=== PATIENT | male | born 1955 | race Caucasian/White ===

== ENCOUNTER → 2016-08-24 | Outpatient (CLI) | payer OTHER ==
[~2016-08-24] MED LIST: ALEVE 220MG220 MG PO; BENICAR HCT 12.1 TA1 PO; BENICAR PO; CYMBALTA 60MG60 MG PO; DIOVAN; FISH OIL1 IU PO; FLEXERIL PO; FLEXERIL10 MG PO; HCTZ; IBUPROFEN800 MG PO; MICRO-K8 MEQ PO; MILK THISTLE PO; MS CONTIN 330 MG/TAB PO; MVI PO; NICOTINE; NORCO 325 MG-101 TAB PO; OXYCODONE PO; PERCOCET 325 MG1 TA2 PO; PERCOCET 325 MG1 TAB PO; TRAMADOL50 MG PO; VICODIN PO
== END ==
LOC: COL.RAD 09:45
DX: K74.69 Other cirrhosis of liver (principal)

== ENCOUNTER 2016-08-31 07:23 | Day surgery (SDC) | payer OTHER ==
[~2016-08-31] VITALS: Ht 177.8 cm; Wt 73.0 kg
[~2016-08-31 07:23] MED LIST changes: -ALEVE 220MG220 MG PO
[2016-08-31 07:55] VITALS: BP 136/86; PULSE 64; TEMP 98.2
[2016-08-31] MEDS ORDERED: ALEVE 220MG220 MG PO (08:06)
[2016-08-31 09:02] VITALS: BP 130/86; PULSE 57; TEMP 98.2
[2016-08-31 09:17] VITALS: BP 135/89; PULSE 63
[2016-08-31 09:32] VITALS: BP 139/91; PULSE 60
== END 2016-08-31 09:50 | disposition home or self-care (01) ==
LOC: SDCO 07:23
DX: K21.0 Gastro-esophageal reflux disease with esophagitis (principal); I85.00 Esophageal varices without bleeding; K74.60 Unspecified cirrhosis of liver; I10 Essential (primary) hypertension; Z86.010 Personal history of colon polyps; Z79.899 Other long term (current) drug therapy
CPT/HCPCS: OP; J2704; J7120

== ENCOUNTER 2017-11-25 13:17 | Day surgery (SDC) | payer OTHER ==
[~2017-11-25] VITALS: Ht 177.8 cm; Wt 69.9 kg
[~2017-11-25 13:17] MED LIST changes: +ALEVE 220MG220 MG PO
[2017-11-25] MEDS ORDERED: DIOVAN HCT 25 M1 TAB PO (13:31)
[2017-11-25] MEDS ORDERED: PRILOTC PO (13:32)
[2017-11-25] MEDS ORDERED: TYLENOL 500MG500 MG PO (13:32)
[2017-11-25 13:51] VITALS: BP 124/70; PULSE 75; TEMP 98.2
[2017-11-25 15:40] VITALS: BP 117/74; PULSE 72; TEMP 97.8
[2017-11-25] MEDS ORDERED: PROTONIX 40MG T40 MG (15:40)
[2017-11-25 16:00] VITALS: BP 123/78; PULSE 60
== END 2017-11-25 16:15 | disposition home or self-care (01) ==
LOC: SDCO 13:17
DX: K26.3 Acute duodenal ulcer without hemorrhage or perforation (principal); Z86.010 Personal history of colon polyps; K29.30 Chronic superficial gastritis without bleeding; D50.0 Iron deficiency anemia secondary to blood loss (chronic); I10 Essential (primary) hypertension; K74.60 Unspecified cirrhosis of liver
CPT/HCPCS: J2250; J2704; J3010; J7030

== ENCOUNTER → 2017-11-26 | Outpatient (CLI) | payer OTHER ==
[~2017-11-26] MED LIST changes: +DIOVAN HCT 25 M1 TAB PO; +PRILOTC PO; +PROTONIX 40MG T40 MG; +TYLENOL 500MG500 MG PO
== END ==
LOC: COL.RAD 16:27
DX: M48.07 Spinal stenosis, lumbosacral region (principal); M43.16 Spondylolisthesis, lumbar region; M41.86 Other forms of scoliosis, lumbar region; M54.6 Pain in thoracic spine; Z96.9 Presence of functional implant, unspecified

== ENCOUNTER → 2017-11-26 | Outpatient (CLI) | payer OTHER | LOC: MHCPAIN 14:59 | DX: G89.29 Other chronic pain (principal); M47.27 Other spondylosis with radiculopathy, lumbosacral region; M53.3 Sacrococcygeal disorders, not elsewhere classified; M96.1 Postlaminectomy syndrome, not elsewhere classified; F17.200 Nicotine dependence, unspecified, uncomplicated | CPT/HCPCS: G0463 ==

== ENCOUNTER → 2018-01-17 | Outpatient (CLI) | payer OTHER | LOC: MHCPAIN 08:00 | DX: G89.29 Other chronic pain (principal); M47.817 Spondylosis without myelopathy or radiculopathy, lumbosacral region; M54.16 Radiculopathy, lumbar region; M53.3 Sacrococcygeal disorders, not elsewhere classified; M96.1 Postlaminectomy syndrome, not elsewhere classified; M48.061 Spinal stenosis, lumbar region without neurogenic claudication | CPT/HCPCS: G0463 ==

== ENCOUNTER → 2018-02-14 | Outpatient (CLI) | payer OTHER | LOC: MHCPAIN 08:09 | DX: G89.29 Other chronic pain (principal); M47.817 Spondylosis without myelopathy or radiculopathy, lumbosacral region; M53.3 Sacrococcygeal disorders, not elsewhere classified; M96.1 Postlaminectomy syndrome, not elsewhere classified; M48.061 Spinal stenosis, lumbar region without neurogenic claudication | CPT/HCPCS: G0463 ==

== ENCOUNTER → 2018-02-21 | Outpatient (CLI) | payer OTHER | LOC: COL.RAD 07:47 | DX: M43.8X6 Other specified deforming dorsopathies, lumbar region (principal); M51.36 Other intervertebral disc degeneration, lumbar region; M40.46 Postural lordosis, lumbar region; M48.061 Spinal stenosis, lumbar region without neurogenic claudication; Z98.1 Arthrodesis status | CPT/HCPCS: A9585 ==

== ENCOUNTER → 2018-04-16 | Outpatient (CLI) | payer OTHER | LOC: MHCPAIN 15:00 | DX: G89.29 Other chronic pain (principal); M47.817 Spondylosis without myelopathy or radiculopathy, lumbosacral region; M54.16 Radiculopathy, lumbar region; M53.3 Sacrococcygeal disorders, not elsewhere classified; M96.1 Postlaminectomy syndrome, not elsewhere classified | CPT/HCPCS: G0463 ==

== ENCOUNTER → 2018-08-13 | Outpatient (CLI) | payer OTHER | LOC: MHCPAIN 13:24 | DX: G89.29 Other chronic pain (principal); M47.817 Spondylosis without myelopathy or radiculopathy, lumbosacral region; M54.16 Radiculopathy, lumbar region; M53.3 Sacrococcygeal disorders, not elsewhere classified; M96.1 Postlaminectomy syndrome, not elsewhere classified | CPT/HCPCS: G0463 ==

== ENCOUNTER → 2018-11-12 | Outpatient (CLI) | payer OTHER | LOC: MHCPAIN 13:16 | DX: G89.29 Other chronic pain (principal); M47.817 Spondylosis without myelopathy or radiculopathy, lumbosacral region; M54.16 Radiculopathy, lumbar region; M53.3 Sacrococcygeal disorders, not elsewhere classified; M96.1 Postlaminectomy syndrome, not elsewhere classified | CPT/HCPCS: G0463 ==

== ENCOUNTER → 2019-02-10 | Outpatient (CLI) | payer OTHER | LOC: MHCPAIN 13:10 | DX: G89.29 Other chronic pain (principal); M47.817 Spondylosis without myelopathy or radiculopathy, lumbosacral region; M54.16 Radiculopathy, lumbar region | CPT/HCPCS: G0463 ==

== ENCOUNTER → 2019-05-06 | Outpatient (CLI) | payer OTHER | LOC: MHCPAIN 07:54 | DX: G89.29 Other chronic pain (principal); M47.817 Spondylosis without myelopathy or radiculopathy, lumbosacral region; M54.16 Radiculopathy, lumbar region; M53.3 Sacrococcygeal disorders, not elsewhere classified | CPT/HCPCS: G0463 ==

== ENCOUNTER → 2019-08-04 | Outpatient (CLI) | payer OTHER | LOC: MHCPAIN 08:11 | DX: M47.817 Spondylosis without myelopathy or radiculopathy, lumbosacral region (principal); M54.16 Radiculopathy, lumbar region | CPT/HCPCS: G0463 ==

== ENCOUNTER → 2019-09-01 | Outpatient (CLI) | payer OTHER | LOC: MHCPAIN 09:07 | DX: M53.3 Sacrococcygeal disorders, not elsewhere classified (principal); M54.16 Radiculopathy, lumbar region; M96.1 Postlaminectomy syndrome, not elsewhere classified | CPT/HCPCS: G0463 ==

== ENCOUNTER → 2019-12-30 | Outpatient (CLI) | payer OTHER | LOC: MHCPAIN 08:57 | DX: M47.817 Spondylosis without myelopathy or radiculopathy, lumbosacral region (principal); M53.3 Sacrococcygeal disorders, not elsewhere classified; M54.5 Low back pain | CPT/HCPCS: G0463 ==

== ENCOUNTER → 2020-03-22 | Outpatient (CLI) | payer OTHER | LOC: MHCPAIN 09:42 | DX: M47.817 Spondylosis without myelopathy or radiculopathy, lumbosacral region (principal); M54.5 Low back pain; M53.3 Sacrococcygeal disorders, not elsewhere classified; M96.1 Postlaminectomy syndrome, not elsewhere classified; G89.29 Other chronic pain | CPT/HCPCS: G0463 ==

== ENCOUNTER → 2020-06-21 | Outpatient (CLI) | payer MEDICARE | LOC: MHCPAIN 09:46 | DX: M54.5 Low back pain (principal); M96.1 Postlaminectomy syndrome, not elsewhere classified; M53.3 Sacrococcygeal disorders, not elsewhere classified | CPT/HCPCS: G0463 ==

== ENCOUNTER → 2020-08-11 | Outpatient (CLI) | payer MEDICARE ==
[2020-08-11] VITALS (17 sets, daily range): BP systolic 130–159; BP diastolic 87–98; PULSE 61–83
[~2020-08-11] VITALS: Ht 177.8 cm; Wt 66.0 kg
[~2020-08-11] MED LIST changes: +PRILOSEC 20MG20 MG PO
[2020-08-11 08:44] LABS: INR 1.1 (0.8-3.0); PROTHROMBIN TIME 12.2 SECONDS (9.7-12.8)
== END ==
LOC: COL.RAD 08:04
PROVIDERS: Internal Medicine
DX: K76.9 Liver disease, unspecified (principal); R59.0 Localized enlarged lymph nodes

== ENCOUNTER → 2020-08-23 | Outpatient (CLI) | payer MEDICARE, OTHER | LOC: MHCPAIN 10:51 | DX: M47.816 Spondylosis without myelopathy or radiculopathy, lumbar region (principal); M54.5 Low back pain; M96.1 Postlaminectomy syndrome, not elsewhere classified; M41.86 Other forms of scoliosis, lumbar region | CPT/HCPCS: G0463 ==

== ENCOUNTER → 2020-09-13 | Outpatient (CLI) | payer MEDICARE, OTHER ==
[~2020-09-13] MED LIST changes: +AMBIEN 10MG10 MG PO; +COMPAZINE 110 MG/TAB PO; +DULCOLAX STOOL100 MG PO; +FENTANYL 25 MCG TD; +FENTANYL 50MCG TD; +MIRTAZAPINE7.5 MG PO; +SENNA-LAX8.6 MG PO
== END ==
LOC: MHCPAIN 07:52
DX: M54.5 Low back pain (principal); M53.3 Sacrococcygeal disorders, not elsewhere classified; M96.1 Postlaminectomy syndrome, not elsewhere classified; C78.7 Secondary malignant neoplasm of liver and intrahepatic bile duct; G89.29 Other chronic pain
CPT/HCPCS: G0463

== ENCOUNTER → 2020-10-03 | Outpatient (CLI) | payer MEDICARE | LOC: MHCPAIN 09:18 | DX: M41.86 Other forms of scoliosis, lumbar region (principal); M96.1 Postlaminectomy syndrome, not elsewhere classified; M54.5 Low back pain; G89.29 Other chronic pain | CPT/HCPCS: G0463 ==

== ENCOUNTER → 2020-10-31 | Outpatient (CLI) | payer MEDICARE | LOC: MHCPAIN 09:19 | DX: M47.816 Spondylosis without myelopathy or radiculopathy, lumbar region (principal); M54.5 Low back pain; M96.1 Postlaminectomy syndrome, not elsewhere classified; G89.29 Other chronic pain; M53.3 Sacrococcygeal disorders, not elsewhere classified | CPT/HCPCS: G0463 ==

== ENCOUNTER 2020-11-22 12:53 | Outpatient (RCR) | payer MEDICARE ==
[2020-11-22] VITALS (9 sets, daily range): BP systolic 124–143; BP diastolic 57–86; PULSE 62–83; TEMP 98–98.6
[~2020-11-22] VITALS: Ht 177.8 cm; Wt 64.5 kg
[~2020-11-22 12:53] MED LIST changes: -AMBIEN 10MG10 MG PO; -COMPAZINE 110 MG/TAB PO; -DULCOLAX STOOL100 MG PO; -FENTANYL 25 MCG TD; -FENTANYL 50MCG TD; -MIRTAZAPINE7.5 MG PO; -SENNA-LAX8.6 MG PO
[2020-11-22] MEDS ORDERED: FENTANYL 25 MCG TD (16:12)
[2021-02-20] MEDS ORDERED: PERCOCET 325 MG1 TAB PO (12:00)
[2021-02-20] MEDS ORDERED: FENTANYL 50MCG TD (12:01)
[2021-02-20] MEDS ORDERED: SENNA-LAX8.6 MG PO (12:05)
[2021-02-20] MEDS ORDERED: AMBIEN 10MG10 MG PO (12:06)
[2021-02-20] MEDS ORDERED: DULCOLAX STOOL100 MG PO (12:07)
[2021-02-20] MEDS ORDERED: MIRTAZAPINE7.5 MG PO (12:07)
[2021-02-20] MEDS ORDERED: COMPAZINE 110 MG/TAB PO (12:08)
== END 2020-11-22 19:40 | disposition home or self-care (01) ==
LOC: EUO 12:53
DX: C77.2 Secondary and unspecified malignant neoplasm of intra-abdominal lymph nodes (principal); C80.1 Malignant (primary) neoplasm, unspecified; D64.81 Anemia due to antineoplastic chemotherapy
CPT/HCPCS: J1644; J7050; P9016

== ENCOUNTER 2020-11-28 13:35 | Emergency (ER) | payer MEDICARE ==
[~2020-11-28] VITALS: Ht 177.8 cm; Wt 61.4 kg
[~2020-11-28 13:35] MED LIST changes: +FENTANYL 25 MCG TD
[2020-11-28 13:56] VITALS: TEMP 97.9
[2020-11-28 14:41] LABS: BASO % 0.3 % (0.0-2.0); GRAN # 2.4 (1.4-6.5); GRAN % 75.2 % (42.2-75.2); HEMOGLOBIN 10.2 g/dl (13.5-18.0); LYMPH # 0.4 (1.2-3.4); MEAN CELL VOLUME 102 fl (80.0-100.0); MEAN CORPUSCULAR HEMOGLOBIN 34 pg (27.0-31.0); MEAN CORPUSCULAR HGB CONC 33 g/dl (33.0-37.0); MEAN PLATELET VOLUME 13.4 fl (7.4-10.4); MONO # 0.3 (0.1-0.6); MONO % 9.2 % (1.7-9.3); RED BLOOD COUNT 2.99 M/mm3 (4.20-5.60); REDCELL DISTRIBUTION WIDTH-CV 16.7 % (11.5-14.5)
[2020-11-28 14:52] LABS: HEMATOCRIT 30.5 % (42.0-52.0)
[2020-11-28 14:53] LABS: ALBUMIN 4.1 gm/dL (3.5-5.0); BILIRUBIN,TOTAL 0.3 mg/dL (0.0-1.0); C-REACTIVE PROTEIN 2.7 mg/dL (0.0-0.9); CREATININE, serum 0.89 (0.66-1.25); POTASSIUM 3.5 mmol/L (3.4-5.0); TOTAL PROTEIN 7.8 gm/dL (6.4-8.2)
[2020-11-28 14:54] LABS: PLATELET COUNT 31 K/mm3 (130-400)
[2020-11-28 15:33] LABS: COLLECTION METHOD CLEAN CATCH
[2020-11-28 15:39] LABS: MUCOUS Present /lpf; PH 7 (5-8); SQUAMOUS EPITHELIAL None Seen /hpf; URINE APPEARANCE Clear; URINE BACTERIA None Seen /hpf; URINE BILIRUBIN Negative (NEGATIVE); URINE BLOOD Negative (NEGATIVE); URINE COLOR Yellow; URINE GLUCOSE Negative (NEGATIVE); URINE KETONE Negative (NEGATIVE); URINE LEUKOCYTE ESTERASE Negative (NEGATIVE); URINE NITRATE Negative (NEGATIVE); URINE PROTEIN(semi-quant) Negative (NEGATIVE); URINE UROBILINOGEN Negative (NEGATIVE)
[2020-11-28 17:10] VITALS: BP 176/103; PULSE 78
[2021-02-20] MEDS ORDERED: PERCOCET 325 MG1 TAB PO (12:00)
[2021-02-20] MEDS ORDERED: FENTANYL 50MCG TD (12:01)
[2021-02-20] MEDS ORDERED: SENNA-LAX8.6 MG PO (12:05)
[2021-02-20] MEDS ORDERED: AMBIEN 10MG10 MG PO (12:06)
[2021-02-20] MEDS ORDERED: MIRTAZAPINE7.5 MG PO (12:07)
[2021-02-20] MEDS ORDERED: DULCOLAX STOOL100 MG PO (12:07)
[2021-02-20] MEDS ORDERED: COMPAZINE 110 MG/TAB PO (12:08)
== END 2020-11-28 17:17 | disposition home or self-care (01) ==
LOC: COL.ER 13:35
PROVIDERS: Nurse Practitioner
DX: R10.11 Right upper quadrant pain (principal); C22.9 Malignant neoplasm of liver, not specified as primary or secondary; F17.210 Nicotine dependence, cigarettes, uncomplicated
CPT/HCPCS: J2405; J3010; J7030; Q9967

== ENCOUNTER → 2020-11-29 | Outpatient (CLI) | payer MEDICARE ==
[~2020-11-29] MED LIST changes: +AMBIEN 10MG10 MG PO; +COMPAZINE 110 MG/TAB PO; +DULCOLAX STOOL100 MG PO; +FENTANYL 50MCG TD; +MIRTAZAPINE7.5 MG PO; +SENNA-LAX8.6 MG PO
== END ==
LOC: MHCPAIN 07:58
DX: M47.816 Spondylosis without myelopathy or radiculopathy, lumbar region (principal); M96.1 Postlaminectomy syndrome, not elsewhere classified; M54.5 Low back pain; G89.29 Other chronic pain
CPT/HCPCS: G0463

== ENCOUNTER → 2020-12-06 | Outpatient (CLI) | payer MEDICARE | LOC: MHCPAIN 08:58 | DX: M47.816 Spondylosis without myelopathy or radiculopathy, lumbar region (principal); C80.1 Malignant (primary) neoplasm, unspecified; M96.1 Postlaminectomy syndrome, not elsewhere classified; G89.29 Other chronic pain | CPT/HCPCS: G0463 ==

== ENCOUNTER → 2021-01-17 | Outpatient (CLI) | payer MEDICARE | LOC: MHCPAIN 09:11 | DX: M47.816 Spondylosis without myelopathy or radiculopathy, lumbar region (principal); M96.1 Postlaminectomy syndrome, not elsewhere classified; C80.1 Malignant (primary) neoplasm, unspecified; G89.3 Neoplasm related pain (acute) (chronic) | CPT/HCPCS: G0463 ==

== ENCOUNTER → 2021-02-14 | Outpatient (CLI) | payer MEDICARE | LOC: MHCPAIN 09:28 | DX: M54.5 Low back pain (principal); M47.816 Spondylosis without myelopathy or radiculopathy, lumbar region; M96.1 Postlaminectomy syndrome, not elsewhere classified; G89.29 Other chronic pain | CPT/HCPCS: G0463 ==

== ENCOUNTER → 2021-02-20 | Outpatient (CLI) | payer MEDICARE ==
[~2021-02-20] VITALS: Ht 177.8 cm; Wt 52.3 kg
[2021-02-20 12:08] VITALS: BP 139/93; PULSE 109; TEMP 98.1
[2021-02-20 13:10] VITALS: BP 160/99; PULSE 95
== END ==
LOC: COL.RAD 11:41
DX: C80.1 Malignant (primary) neoplasm, unspecified (principal)
CPT/HCPCS: 32140

== ENCOUNTER → 2021-03-07 | Outpatient (CLI) | payer MEDICARE | LOC: MHCPAIN 07:53 | DX: M47.816 Spondylosis without myelopathy or radiculopathy, lumbar region (principal); M96.1 Postlaminectomy syndrome, not elsewhere classified; M54.5 Low back pain; C80.1 Malignant (primary) neoplasm, unspecified; M53.3 Sacrococcygeal disorders, not elsewhere classified | CPT/HCPCS: G0463 ==

== ENCOUNTER → 2021-03-21 | Outpatient (CLI) | payer MEDICARE | LOC: MHCPAIN 13:16 | DX: M54.16 Radiculopathy, lumbar region (principal); M96.1 Postlaminectomy syndrome, not elsewhere classified; G89.3 Neoplasm related pain (acute) (chronic) | CPT/HCPCS: G0463 ==

== ENCOUNTER → 2021-04-18 | Outpatient (CLI) | payer MEDICARE | LOC: MHCPAIN 10:42 | DX: M54.5 Low back pain (principal); C80.1 Malignant (primary) neoplasm, unspecified; R10.84 Generalized abdominal pain; M47.816 Spondylosis without myelopathy or radiculopathy, lumbar region; M96.1 Postlaminectomy syndrome, not elsewhere classified | CPT/HCPCS: G0463 ==

== ENCOUNTER 2021-04-22 23:47 | Emergency (ER) | payer MEDICARE ==
[~2021-04-22] VITALS: Ht 177.8 cm; Wt 47.7 kg
[2021-04-22 23:57] VITALS: TEMP 98.5
[2021-04-23 00:19] LABS: BASO % 0.5 % (0.0-2.0); EOS % 0.2 % (0-4.0); GRAN # 4.3 (1.4-6.5); GRAN % 72.4 % (42.2-75.2); LYMPH % 17.4 % (20.0-51.0); MEAN CELL VOLUME 107 fl (80.0-100.0); MEAN CORPUSCULAR HGB CONC 32 g/dl (33.0-37.0); MEAN PLATELET VOLUME 10.6 fl (7.4-10.4); MONO # 0.5 (0.1-0.6); MONO % 8.7 % (1.7-9.3); PLATELET COUNT 136 K/mm3 (130-400); REDCELL DISTRIBUTION WIDTH-CV 13.2 % (11.5-14.5)
[2021-04-23 00:20] LABS: HEMATOCRIT 29.9 % (42.0-52.0); HEMOGLOBIN 9.7 g/dl (13.5-18.0); MEAN CORPUSCULAR HEMOGLOBIN 35 pg (27.0-31.0)
[2021-04-23 00:21] LABS: INR 1.2 (0.8-3.0); PROTHROMBIN TIME 13.1 SECONDS (9.7-12.8)
[2021-04-23 00:26] LABS: ALBUMIN 2.6 gm/dL (3.4-4.8); ALKALINE PHOSPHATASE 177 U/L (0-750); ANION GAP 14 mmol/L (7-16); AST,SGOT 10 U/L (5-34); BILIRUBIN,TOTAL 0.3 mg/dL (0.2-1.2); BLOOD UREA NITROGEN 26 mg/dL (8-26); CALCIUM 7.7 mg/dL (8.4-10.2); CARBON DIOXIDE 20 mmol/L (23-31); CHLORIDE 105 mmol/L (98-107); CREATININE, serum 1.24 mg/dL (0.72-1.25); GLUCOSE 143 mg/dL (70-99); SODIUM 139 mmol/L (136-145); TOTAL PROTEIN 5.7 gm/dL (6.2-8.1)
[2021-04-23 00:27] LABS: ALANINE AMINOTRANSFERASE < 6 U/L (0-55); ALCOHOL(ethanol),MEDICAL < 10 mg/dL (0-10)
[2021-04-23 01:38] LABS: COLLECTION METHOD CLEAN CATCH
[2021-04-23 01:43] LABS: MUCOUS Present /lpf; PH 5 (5-8); SQUAMOUS EPITHELIAL None Seen /hpf; URINE APPEARANCE Clear; URINE BACTERIA Rare /hpf; URINE BILIRUBIN Negative (NEGATIVE); URINE BLOOD Negative (NEGATIVE); URINE COLOR Yellow; URINE GLUCOSE Negative (NEGATIVE); URINE KETONE Negative (NEGATIVE); URINE LEUKOCYTE ESTERASE Negative (NEGATIVE); URINE NITRATE Negative (NEGATIVE); URINE PROTEIN(semi-quant) 1+ (NEGATIVE); URINE RBC 0-2 /hpf; URINE UROBILINOGEN Negative (NEGATIVE)
[2021-04-23 02:49] VITALS: BP 131/90; PULSE 92
== END 2021-04-23 02:49 | disposition home or self-care (01) ==
LOC: COL.ER 23:47
PROVIDERS: Physician Assistant
DX: E87.6 Hypokalemia (principal); C22.9 Malignant neoplasm of liver, not specified as primary or secondary; R56.9 Unspecified convulsions
CPT/HCPCS: J3480; J7030